=== PATIENT | female | born 1950 | race Caucasian/White ===

== ENCOUNTER → 2018-09-10 | Outpatient (REF) | payer MEDICARE, OTHER | END | disposition home or self-care (01) | LOC: STRESS 08:42 → NUCMED 09:00 | PROVIDERS: ATTEND Internal Medicine | DX: I20.9 Angina pectoris, unspecified (principal); I10 Essential (primary) hypertension | CPT/HCPCS: A9502; J2785 ==

== ENCOUNTER 2024-02-24 09:41 | Day surgery (SDC) | payer MEDICARE, OTHER ==
[~2024-02-24] VITALS: Ht 170.2 cm; Wt 80.7 kg
[~2024-02-24 09:41] MED LIST: AMLODIPINE BESY10 MG PO; ASPIRINCHW 81MG PO; ATORVASTATIN CA40 MG PO; BENICAR40 MG PO; GABAPENTIN100 MG PO; INDERAL LA80 MG PO; INSULIN DEGL; LEVOTHYROXIN125 MCG PO; METFORMIN HCL1000 MG PO; PRIMIDONE50 MG PO; RYBELSUS7 MG; ZOLOFT100 MG PO
[2024-02-24] MEDS ORDERED: SODIUM CHLORIDE 0.9% 1,000 ML IV ONE (09:46)
[2024-02-24] MEDS ORDERED: FAMOTIDINE 10MG/ML 2ML SDV IV ONE (09:46)
[2024-02-24 11:51] VITALS: BP 119/53
[2024-02-24] MEDS ORDERED: LIDOCAINE HCL 2% 2ML SDV IV ONE (11:51)
[2024-02-24] MEDS ORDERED: PROPOFOL 200 MG/20 ML VIAL IV ONE (11:51)
[2024-02-24] MEDS ORDERED: GLYCOPYRROLATE 0.2 MG/ML IV ONE (11:51)
== END 2024-02-24 12:05 | disposition home or self-care (01) ==
LOC: ORM 09:41
PROVIDERS: ATTEND Internal Medicine Gastroenterology
PROC: 0DBK8ZX Excision of Ascending Colon, Via Natural or Artificial Opening Endoscopic, Diagnostic (ICD-10-PCS; principal; 2024-02-24)
PROC: 0DBL8ZX Excision of Transverse Colon, Via Natural or Artificial Opening Endoscopic, Diagnostic (ICD-10-PCS; 2024-02-24)
DX: Z12.11 Encounter for screening for malignant neoplasm of colon (principal); D12.2 Benign neoplasm of ascending colon; D12.3 Benign neoplasm of transverse colon; K64.8 Other hemorrhoids; I10 Essential (primary) hypertension; F17.210 Nicotine dependence, cigarettes, uncomplicated; Z86.010 Personal history of colon polyps; Z80.0 Family history of malignant neoplasm of digestive organs